=== PATIENT | male | born 1955 | race Two or more races ===

== ENCOUNTER 2024-06-22 20:15 | Inpatient (IN) | payer MEDICARE, OTHER ==
[~2024-06-22] VITALS: Ht 167.6 cm; Wt 57.4 kg
[2024-06-22 21:09] LABS: BASOPHILS # (AUTO) 0.1 K/UL (0.0-0.2); BASOPHILS % (AUTO) 1.5 % (0.0-2.0); EOSINOPHILS # (AUTO) 0.1 K/uL (0.0-0.7); EOSINOPHILS % (AUTO) 2.6 % (0.0-7.0); HEMATOCRIT 34.5 % (36.7-47.1); LYMPHOCYTES # (AUTO) 1.6 K/uL (0.8-4.8); LYMPHOCYTES % (AUTO) 30.3 % (20.5-51.5); MEAN CORPUSCULAR HEMOGLOBIN 24.7 uug (23.8-33.4); MEAN CORPUSCULAR HGB CONC 32 g/dL (32.5-36.3); MEAN CORPUSCULAR VOLUME 77.5 fL (73.0-96.2); MONOCYTES # (AUTO) 0.5 K/uL (0.1-1.30); MONOCYTES % (AUTO) 9.7 % (0.0-11.0); NEUTROPHILS # (AUTO) 2.9 K/uL (1.8-8.9); NEUTROPHILS % (AUTO) 55.9 % (38.5-71.5); PLATELET COUNT (AUTO) 282 K/uL (152-348); RED BLOOD CELL COUNT(AUTO) 4.45 MIL/uL (4.06-5.63); RED CELL DISTRIBUTION WIDTH 18.4 % (12.1-16.2); WHITE BLOOD COUNT (AUTO) 5.2 K/uL (3.6-10.2)
[2024-06-22 21:11] LABS: DIFFERENTIAL COMMENT 1
[2024-06-22 21:17] LABS: CARBON DIOXIDE 23 mmol/L (21-32); CHLORIDE 111 mmol/L (98-107); CREATININE 1.9 mg/dL (0.6-1.3); GLUCOSE 92 mg/dL (74-106); SODIUM SERUM 145 mmol/L (136-145); UREA NITROGEN, BLOOD 26 mg/dL (7-18)
[2024-06-22 21:30] LABS: ALANINE AMINOTRANSFERASE 32 U/L (16-63); ALBUMIN 2.8 g/dL (3.4-5.0); ASPARTATE AMINOTRANSFERASE 29 U/L (15-37); BILIRUBIN,DIRECT 0.3 mg/dL (0.0-0.2); BILIRUBIN,TOTAL 0.9 mg/dL (0.2-1.0); NT-PRO BNP 14065 pg/mL (0-125); TOTAL PROTEIN, SERUM 7.5 g/dL (6.4-8.2)
[2024-06-22 21:44] LABS: ALKALINE PHOSPHATASE 142 U/L (50-136)
[2024-06-22] MEDS: ALBUTEROL SULFATE 2.5 MG/3 ML NEBU NEB ONE (21:47)
[2024-06-22 21:50] VITALS: O2SAT 100
[2024-06-22] MEDS ORDERED: CALCIUM GLUCONATE 1 GM/10 ML VIAL IV ONE (21:55)
[2024-06-22] MEDS ORDERED: ASPIRIN 81 MG TAB.CHEW ONE (21:55)
[2024-06-22] MEDS: ASPIRIN 81 MG TAB.CHEW PO ONE (21:57)
[2024-06-22] MEDS: SODIUM POLYSTYRENE SULFONATE 15 G/60 ML LIQUID UDC PO ONE (21:57)
[2024-06-22] MEDS: CALCIUM GLUCONATE IV 1 GM in IV DEXTROSE 5% 50 ML IV ONE (21:57)
[2024-06-22 22:40] VITALS: O2SAT 100; O2SAT 99
[2024-06-22] MEDS ORDERED: MORPHINE SULFATE 4 MG/1 ML DISP.SYRIN ONE (23:00)
[2024-06-23 00:06] LABS: CALCIUM 9.3 mg/dL (8.5-10.1); CREATININE 1.9 mg/dL (0.6-1.3); POTASSIUM 5.7 mmol/L (3.5-5.1)
[2024-06-23] MEDS ORDERED: FUROSEMIDE 20 MG/2 ML VIAL ONE ×2 (01:01→09:31)
[2024-06-23] MEDS: FUROSEMIDE 40 MG/4 ML VIAL IV ONE (01:06)
[2024-06-23] MEDS ORDERED: REMEDY ESSENTIAL ZINC PASTE 113 GM TP PRN (01:15)
[2024-06-23] MEDS ORDERED: ACETAMINOPHEN 325 MG TABLET PO PRN (01:15)
[2024-06-23] MEDS: DOXYCYCLINE HYCLATE 100 MG TABLET PO ONE (04:15)
[2024-06-23] MEDS ORDERED: DOXYCYCLINE HYCLATE 100 MG TABLET ONE (04:22)
[2024-06-23] MEDS ORDERED: MORPHINE SULFATE 4 MG/1 ML DISP.SYRIN ONE (06:13)
[2024-06-23] MEDS: MORPHINE SULFATE 4 MG/1 ML DISP.SYRIN IV ONE (06:20)
[2024-06-23 08:07] LABS: BASOPHILS # (AUTO) 0.1 K/UL (0.0-0.2); BASOPHILS % (AUTO) 1.1 % (0.0-2.0); EOSINOPHILS # (AUTO) 0.1 K/uL (0.0-0.7); EOSINOPHILS % (AUTO) 2.1 % (0.0-7.0); HEMATOCRIT 33.3 % (36.7-47.1); HEMOGLOBIN 10.6 g/dL (12.5-16.3); LYMPHOCYTES # (AUTO) 1.5 K/uL (0.8-4.8); LYMPHOCYTES % (AUTO) 30.9 % (20.5-51.5); MEAN CORPUSCULAR HEMOGLOBIN 24.4 uug (23.8-33.4); MEAN CORPUSCULAR HGB CONC 32 g/dL (32.5-36.3); MEAN CORPUSCULAR VOLUME 77.1 fL (73.0-96.2); MONOCYTES # (AUTO) 0.5 K/uL (0.1-1.30); MONOCYTES % (AUTO) 10.9 % (0.0-11.0); NEUTROPHILS # (AUTO) 2.7 K/uL (1.8-8.9); PLATELET COUNT (AUTO) 254 K/uL (152-348); RED BLOOD CELL COUNT(AUTO) 4.33 MIL/uL (4.06-5.63); RED CELL DISTRIBUTION WIDTH 18.5 % (12.1-16.2); WHITE BLOOD COUNT (AUTO) 4.9 K/uL (3.6-10.2)
[2024-06-23 08:33] LABS: DIFFERENTIAL COMMENT 1
[2024-06-23 08:59] LABS: CALCIUM 9.2 mg/dL (8.5-10.1); CREATININE 2.1 mg/dL (0.6-1.3); PHOSPHOROUS 4.5 mg/dL (2.5-4.9); POTASSIUM 4.7 mmol/L (3.5-5.1)
[2024-06-23] MEDS: FUROSEMIDE 20 MG/2 ML VIAL IV SCH ×2 (09:35→20:49)
[2024-06-23] MEDS ORDERED: DAPA10TA PO (10:10)
[2024-06-23] MEDS ORDERED: SACU1TAB PO (10:10)
[2024-06-23] MEDS ORDERED: CARV6.252 PO (10:10)
[2024-06-23] MEDS ORDERED: FURO-151 PO (10:10)
[2024-06-23] MEDS: CEFEPIME HCL 2 GM in IV DEXTROSE 5% 100 ML IV SCH (12:22)
[2024-06-23] MEDS ORDERED: CEFEPIME HCL 1 G in IV DEXTROSE 5% 50 ML IV SCH (14:00)
[2024-06-23 15:43] VITALS: BP 176/99; TEMP 98; O2SAT 98
[2024-06-23] MEDS ORDERED: ALBUTEROL SULFATE 2.5 MG/3 ML NEBU NEB PRN (16:30)
[2024-06-23] MEDS ORDERED: IPRATROPIUM BROMIDE 0.5 MG/2.5 ML NEBU NEB PRN (16:30)
[2024-06-23] MEDS: CARVEDILOL 6.25 MG TABLET PO SCH (17:03)
[2024-06-23] MEDS: SACUBITRIL PO SCH (17:03)
[2024-06-23] MEDS: VALSARTAN PO SCH (17:03)
[2024-06-23] MEDS: [UNRECOGNIZED DRUG - OTHER] PO SCH (17:03)
[2024-06-23 17:04] LABS: ABG BASE EXCESS 0.9 mmol/L (-2.0-3.0); ABG HCO3 24.1 mmol/L (21.0-28.0); ABG PCO2 33.5 mmHg (35.0-48.0); ABG PH 7.474 (7.350-7.450); ABG PO2 326.1 mmHg (83.0-108.0); ABG SITE RIGHT RADIAL; ABG TOTAL HEMOGLOBIN 11.6 G/dL (13.5-17.5); AaDO2 99.8 mmHg; COHb 0.3 % (0.5-1.5); MetHb 0.5 % (0.0-1.5); O2Hb 98.8 % (94.0-98.0)
[2024-06-23 20:21] VITALS: BP 133/95; TEMP 98.7; O2SAT 100
[2024-06-24 00:06] VITALS: BP 121/76; TEMP 98.1; O2SAT 99
[2024-06-24 04:03] VITALS: BP 126/80; TEMP 98.2; O2SAT 99
[2024-06-24 07:05] LABS: BASOPHILS # (AUTO) 0.1 K/UL (0.0-0.2); BASOPHILS % (AUTO) 1.1 % (0.0-2.0); EOSINOPHILS # (AUTO) 0.5 K/uL (0.0-0.7); EOSINOPHILS % (AUTO) 8.7 % (0.0-7.0); HEMATOCRIT 35.3 % (36.7-47.1); HEMOGLOBIN 11.3 g/dL (12.5-16.3); LYMPHOCYTES # (AUTO) 1.2 K/uL (0.8-4.8); LYMPHOCYTES % (AUTO) 23.7 % (20.5-51.5); MEAN CORPUSCULAR HEMOGLOBIN 24.2 uug (23.8-33.4); MEAN CORPUSCULAR HGB CONC 32 g/dL (32.5-36.3); MEAN CORPUSCULAR VOLUME 75.7 fL (73.0-96.2); MONOCYTES # (AUTO) 0.7 K/uL (0.1-1.30); MONOCYTES % (AUTO) 13.3 % (0.0-11.0); NEUTROPHILS # (AUTO) 2.8 K/uL (1.8-8.9); NEUTROPHILS % (AUTO) 53.2 % (38.5-71.5); PLATELET COUNT (AUTO) 244 K/uL (152-348); RED BLOOD CELL COUNT(AUTO) 4.66 MIL/uL (4.06-5.63); RED CELL DISTRIBUTION WIDTH 18.2 % (12.1-16.2); WHITE BLOOD COUNT (AUTO) 5.2 K/uL (3.6-10.2)
[2024-06-24 07:19] LABS: DIFFERENTIAL COMMENT 1
[2024-06-24 07:25] LABS: CALCIUM 8.2 mg/dL (8.5-10.1); CREATININE 2.1 mg/dL (0.6-1.3); MAGNESIUM 1.5 mg/dL (1.8-2.4); PHOSPHOROUS 4.1 mg/dL (2.5-4.9); POTASSIUM 3.7 mmol/L (3.5-5.1)
[2024-06-24] MEDS: DAPAGLIFLOZIN PROPANEDIOL 5 MG TABLET PO SCH (08:21)
[2024-06-24 08:30] VITALS: BP 116/79; TEMP 97.9; O2SAT 96
[2024-06-24] MEDS ORDERED: DAPAGLIFLOZIN PROPANEDIOL 10 MG TABLET PO SCH (09:00)
[2024-06-24] MEDS ORDERED: MAGNESIUM SULFATE/D5W 100 ML IV SCH (10:00)
[2024-06-24] MEDS: MAGNESIUM SULFATE/D5W 100 ML IV SCH (11:18)
[2024-06-24 12:00] VITALS: BP 99/70; TEMP 98.1; O2SAT 98
[2024-06-24 15:22] VITALS: BP 98/67; TEMP 97.6; O2SAT 96
[2024-06-24 22:04] VITALS: BP 121/77; TEMP 98; O2SAT 100
[2024-06-25 06:19] LABS: *BILIRUBIN,URIN NEGATIVE (NEGATIVE); *BLOOD, URINE NEGATIVE (NEGATIVE); *CLARITY,URINE CLEAR (CLEAR); *COLOR,URINE YELLOW (YELLOW); *KETONES,URINE NEGATIVE (NEGATIVE); *PROTEIN,URINE NEGATIVE (NEGATIVE); *UROBILINOGEN,URINE 0.2 E.U./dl (NORMAL); LEUKOCYTE ESTERASE ,URINE NEGATIVE (NEGATIVE); NITRITE, URINE NEGATIVE (NEGATIVE); UGLUCOSE TRACE (NEGATIVE)
[2024-06-25 07:18] LABS: BACTERIA,URINE NONE SEEN /HPF (NONE SEEN); RBC,URINE 0-3 /HPF (0-3); SQUAMOUS EPITHELIAL CELL,UR FEW /HPF (NONE SEEN); WBC,URINE 0-3 /HPF (0-3)
[2024-06-25 07:20] LABS: *CREATININE,URINE < 13.0 mg/dL (30-125); *SODIUM RNDM,URINE 118 mmol/L (40-220); *URINE TOTAL PROTEIN RANDOM < 6.0 mg/dL (<150/24HR)
[2024-06-25 07:25] LABS: BASOPHILS % (AUTO) 0.8 % (0.0-2.0); EOSINOPHILS # (AUTO) 0.5 K/uL (0.0-0.7); EOSINOPHILS % (AUTO) 8.6 % (0.0-7.0); HEMATOCRIT 37.6 % (36.7-47.1); HEMOGLOBIN 12.5 g/dL (12.5-16.3); LYMPHOCYTES # (AUTO) 1.4 K/uL (0.8-4.8); LYMPHOCYTES % (AUTO) 21.5 % (20.5-51.5); MEAN CORPUSCULAR HEMOGLOBIN 25.1 uug (23.8-33.4); MEAN CORPUSCULAR HGB CONC 33 g/dL (32.5-36.3); MEAN CORPUSCULAR VOLUME 75.4 fL (73.0-96.2); MONOCYTES # (AUTO) 0.8 K/uL (0.1-1.30); MONOCYTES % (AUTO) 12.4 % (0.0-11.0); NEUTROPHILS # (AUTO) 3.6 K/uL (1.8-8.9); NEUTROPHILS % (AUTO) 56.7 % (38.5-71.5); PLATELET COUNT (AUTO) 275 K/uL (152-348); RED BLOOD CELL COUNT(AUTO) 4.99 MIL/uL (4.06-5.63); RED CELL DISTRIBUTION WIDTH 17.9 % (12.1-16.2); WHITE BLOOD COUNT (AUTO) 6.3 K/uL (3.6-10.2)
[2024-06-25 07:35] VITALS: BP 113/80; TEMP 98; O2SAT 97
[2024-06-25 07:43] LABS: DIFFERENTIAL COMMENT 1
[2024-06-25 07:49] LABS: ALBUMIN 2.3 g/dL (3.4-5.0); BILIRUBIN,TOTAL 0.6 mg/dL (0.2-1.0); CALCIUM 8.3 mg/dL (8.5-10.1); CREATININE 2.2 mg/dL (0.6-1.3); MAGNESIUM 1.9 mg/dL (1.8-2.4); PHOSPHOROUS 4.8 mg/dL (2.5-4.9); POTASSIUM 3.6 mmol/L (3.5-5.1); TOTAL PROTEIN, SERUM 7.1 g/dL (6.4-8.2)
[2024-06-25 11:43] VITALS: BP 94/68; TEMP 98; O2SAT 96
[2024-06-25 15:45] VITALS: BP 103/73; TEMP 97.6; O2SAT 98
[2024-06-25 19:38] VITALS: BP 114/70; TEMP 99.5; O2SAT 96
[2024-06-26] VITALS (10 sets, daily range): BP systolic 66–115; BP diastolic 45–82; TEMP 97.6–99; O2SAT 92–100
[2024-06-26 07:03] LABS: BASOPHILS % (AUTO) 0.5 % (0.0-2.0); EOSINOPHILS # (AUTO) 0.5 K/uL (0.0-0.7); EOSINOPHILS % (AUTO) 6.1 % (0.0-7.0); HEMATOCRIT 40.2 % (36.7-47.1); HEMOGLOBIN 13.1 g/dL (12.5-16.3); LYMPHOCYTES # (AUTO) 1.6 K/uL (0.8-4.8); LYMPHOCYTES % (AUTO) 21.4 % (20.5-51.5); MEAN CORPUSCULAR HEMOGLOBIN 24.4 uug (23.8-33.4); MEAN CORPUSCULAR HGB CONC 33 g/dL (32.5-36.3); MONOCYTES % (AUTO) 13.6 % (0.0-11.0); NEUTROPHILS # (AUTO) 4.4 K/uL (1.8-8.9); NEUTROPHILS % (AUTO) 58.4 % (38.5-71.5); PLATELET COUNT (AUTO) 303 K/uL (152-348); RED BLOOD CELL COUNT(AUTO) 5.36 MIL/uL (4.06-5.63); RED CELL DISTRIBUTION WIDTH 18.3 % (12.1-16.2); WHITE BLOOD COUNT (AUTO) 7.6 K/uL (3.6-10.2)
[2024-06-26 07:21] LABS: ALBUMIN 2.5 g/dL (3.4-5.0); BILIRUBIN,DIRECT 0.3 mg/dL (0.0-0.2); BILIRUBIN,TOTAL 0.6 mg/dL (0.2-1.0); CALCIUM 8.4 mg/dL (8.5-10.1); CREATININE 2.2 mg/dL (0.6-1.3); MAGNESIUM 2.1 mg/dL (1.8-2.4); PHOSPHOROUS 4.2 mg/dL (2.5-4.9); POTASSIUM 3.7 mmol/L (3.5-5.1); TOTAL PROTEIN, SERUM 7.5 g/dL (6.4-8.2)
[2024-06-26 07:23] LABS: DIFFERENTIAL COMMENT 1
[2024-06-26] MEDS: IV NORMAL SALINE 500 ML BAG IV ONE (11:24)
[2024-06-26] MEDS: ASPIRIN 81 MG TAB.CHEW PO ONE (11:26)
[2024-06-26] MEDS: TRAMADOL HCL 50 MG TABLET PO PRN (20:50)
[2024-06-27 00:43] VITALS: TEMP 98
[2024-06-27 04:00] VITALS: BP 118/79; TEMP 98; O2SAT 95
[2024-06-27 05:11] LABS: PTH, INTACT 107 pg/mL (15-65)
[2024-06-27 06:41] LABS: BASOPHILS % (AUTO) 0.6 % (0.0-2.0); EOSINOPHILS # (AUTO) 0.4 K/uL (0.0-0.7); HEMATOCRIT 37.7 % (36.7-47.1); HEMOGLOBIN 12.7 g/dL (12.5-16.3); LYMPHOCYTES # (AUTO) 1.4 K/uL (0.8-4.8); LYMPHOCYTES % (AUTO) 18.7 % (20.5-51.5); MEAN CORPUSCULAR HEMOGLOBIN 25.4 uug (23.8-33.4); MEAN CORPUSCULAR HGB CONC 34 g/dL (32.5-36.3); MEAN CORPUSCULAR VOLUME 75.3 fL (73.0-96.2); MONOCYTES # (AUTO) 1.1 K/uL (0.1-1.30); MONOCYTES % (AUTO) 15.1 % (0.0-11.0); NEUTROPHILS # (AUTO) 4.6 K/uL (1.8-8.9); NEUTROPHILS % (AUTO) 60.6 % (38.5-71.5); PLATELET COUNT (AUTO) 278 K/uL (152-348); RED CELL DISTRIBUTION WIDTH 17.9 % (12.1-16.2); WHITE BLOOD COUNT (AUTO) 7.6 K/uL (3.6-10.2)
[2024-06-27 06:43] LABS: DIFFERENTIAL COMMENT 1
[2024-06-27 07:00] LABS: CALCIUM 8.3 mg/dL (8.5-10.1); CREATININE 2.1 mg/dL (0.6-1.3)
[2024-06-27 08:06] LABS: PTH, INTACT 129 pg/mL (15-65)
[2024-06-27 11:06] LABS: A/G RATIO 0.6 (0.7-1.7); ALBUMIN 2.5 g/dL (2.9-4.4); ALPHA-1-GLOBULIN 0.3 g/dL (0.0-0.4); ALPHA-2-GLOBULIN 0.8 g/dL (0.4-1.0); BETA GLOBULIN 1.1 g/dL (0.7-1.3); GAMMA GLOBULIN 2.2 g/dL (0.4-1.8); GLOBULIN, TOTAL 4.3 g/dL (2.2-3.9); M-SPIKE 1.5 g/dL (Not Observed); PROTEIN, TOTAL 6.8 g/dL (6.0-8.5)
[2024-06-27 11:06] LABS: A/G RATIO 0.7 (0.7-1.7); ALBUMIN 2.6 g/dL (2.9-4.4); ALPHA-1-GLOBULIN 0.3 g/dL (0.0-0.4); ALPHA-2-GLOBULIN 0.8 g/dL (0.4-1.0); BETA GLOBULIN 1.4 g/dL (0.7-1.3); GAMMA GLOBULIN 1.4 g/dL (0.4-1.8); GLOBULIN, TOTAL 3.9 g/dL (2.2-3.9); M-SPIKE 0.8 g/dL (Not Observed); PROTEIN, TOTAL 6.5 g/dL (6.0-8.5)
[2024-06-27 12:51] LABS: ANISOCYTOSIS 1+; BASOPHILS % (MANUAL) 0 % (0-2); EOSINOPHILS % (MANUAL) 5 % (0-8); LYMPHOCYTES % (MANUAL) 16 % (20-40); MONOCYTES % (MANUAL) 14 % (2-10); NEUTROPHILS % (MANUAL) 65 % (42-75); PLATELET ESTIMATE ADEQUATE
[2024-06-27] MEDS: COLCHICINE 0.6 MG TABLET PO ONE (12:52)
[2024-06-27] MEDS: TRAMADOL HCL 50 MG TABLET PO PRN (13:00)
[2024-06-27 17:13] VITALS: BP 96/59; TEMP 97.8; O2SAT 97
[2024-06-27 19:00] VITALS: BP 103/71; TEMP 97.5; O2SAT 95
[2024-06-27] MEDS: CEFDINIR 300 MG CAPSULE PO SCH (21:22)
[2024-06-27 23:41] VITALS: BP 103/71; TEMP 97.5
[2024-06-28] VITALS: BP 125/73; TEMP 98.7; O2SAT 88
[2024-06-28 01:54] VITALS: BP 125/73; TEMP 98.7; O2SAT 97
[2024-06-28 04:00] VITALS: BP 128/66; TEMP 98.4; O2SAT 95
[2024-06-28 07:27] LABS: BASOPHILS % (AUTO) 0.7 % (0.0-2.0); EOSINOPHILS # (AUTO) 0.5 K/uL (0.0-0.7); HEMATOCRIT 36.9 % (36.7-47.1); HEMOGLOBIN 12.2 g/dL (12.5-16.3); LYMPHOCYTES # (AUTO) 1.6 K/uL (0.8-4.8); LYMPHOCYTES % (AUTO) 26.1 % (20.5-51.5); MEAN CORPUSCULAR HEMOGLOBIN 24.8 uug (23.8-33.4); MEAN CORPUSCULAR HGB CONC 33 g/dL (32.5-36.3); MEAN CORPUSCULAR VOLUME 74.9 fL (73.0-96.2); MONOCYTES # (AUTO) 1.2 K/uL (0.1-1.30); MONOCYTES % (AUTO) 19.2 % (0.0-11.0); NEUTROPHILS # (AUTO) 2.9 K/uL (1.8-8.9); PLATELET COUNT (AUTO) 267 K/uL (152-348); RED BLOOD CELL COUNT(AUTO) 4.92 MIL/uL (4.06-5.63); RED CELL DISTRIBUTION WIDTH 18.7 % (12.1-16.2); WHITE BLOOD COUNT (AUTO) 6.3 K/uL (3.6-10.2)
[2024-06-28 07:38] VITALS: BP 111/65; TEMP 98.5; O2SAT 96
[2024-06-28 07:45] LABS: CALCIUM 8.4 mg/dL (8.5-10.1); CREATININE 1.7 mg/dL (0.6-1.3); MAGNESIUM 2.1 mg/dL (1.8-2.4); PHOSPHOROUS 3.6 mg/dL (2.5-4.9); POTASSIUM 4.2 mmol/L (3.5-5.1)
[2024-06-28 07:48] LABS: DIFFERENTIAL COMMENT 1
[2024-06-28] MEDS: COLCHICINE 0.6 MG TABLET PO SCH (08:56)
[2024-06-28] MEDS: FUROSEMIDE 40 MG TABLET PO SCH (08:56)
[2024-06-28 09:59] LABS: EOSINOPHILS % (MANUAL) 8 % (0-8); LYMPHOCYTES % (MANUAL) 26 % (20-40); MONOCYTES % (MANUAL) 19 % (2-10); NEUTROPHILS % (MANUAL) 47 % (42-75); PLATELET ESTIMATE ADEQUATE
[2024-06-28 11:38] VITALS: BP 91/57; TEMP 98.4; O2SAT 97
[2024-06-28 15:50] VITALS: BP 97/63; TEMP 98.3; O2SAT 99
[2024-06-29 04:53] VITALS: BP 100/61; TEMP 98; O2SAT 99
[2024-06-29 07:14] LABS: BASOPHILS # (AUTO) 0.1 K/UL (0.0-0.2); BASOPHILS % (AUTO) 1.3 % (0.0-2.0); EOSINOPHILS # (AUTO) 0.5 K/uL (0.0-0.7); EOSINOPHILS % (AUTO) 8.9 % (0.0-7.0); HEMATOCRIT 34.8 % (36.7-47.1); HEMOGLOBIN 11.7 g/dL (12.5-16.3); LYMPHOCYTES # (AUTO) 1.7 K/uL (0.8-4.8); LYMPHOCYTES % (AUTO) 33.5 % (20.5-51.5); MEAN CORPUSCULAR HEMOGLOBIN 25.2 uug (23.8-33.4); MEAN CORPUSCULAR HGB CONC 34 g/dL (32.5-36.3); MEAN CORPUSCULAR VOLUME 75.1 fL (73.0-96.2); MONOCYTES # (AUTO) 0.8 K/uL (0.1-1.30); MONOCYTES % (AUTO) 15.2 % (0.0-11.0); NEUTROPHILS # (AUTO) 2.1 K/uL (1.8-8.9); NEUTROPHILS % (AUTO) 41.1 % (38.5-71.5); PLATELET COUNT (AUTO) 290 K/uL (152-348); RED BLOOD CELL COUNT(AUTO) 4.63 MIL/uL (4.06-5.63); RED CELL DISTRIBUTION WIDTH 18.3 % (12.1-16.2); WHITE BLOOD COUNT (AUTO) 5.2 K/uL (3.6-10.2)
[2024-06-29 07:36] LABS: CALCIUM 8.3 mg/dL (8.5-10.1); CREATININE 1.9 mg/dL (0.6-1.3); PHOSPHOROUS 4.4 mg/dL (2.5-4.9); POTASSIUM 4.1 mmol/L (3.5-5.1)
[2024-06-29 07:57] LABS: DIFFERENTIAL COMMENT 1
[2024-06-29 10:18] LABS: EOSINOPHILS % (MANUAL) 9 % (0-8); LYMPHOCYTES % (MANUAL) 34 % (20-40); MONOCYTES % (MANUAL) 15 % (2-10); NEUTROPHILS % (MANUAL) 41 % (42-75)
[2024-06-29 10:19] LABS: ANISOCYTOSIS 2+; BASOPHILS % (MANUAL) 1 % (0-2); HYPOCHROMASIA 1+; PLATELET ESTIMATE ADEQUATE
[2024-06-29 11:39] VITALS: BP 99/62; TEMP 98; O2SAT 100
[2024-06-29] MEDS ORDERED: CARV6.252 PO (14:13)
[2024-06-29] MEDS ORDERED: FURO40TA5 PO (14:13)
[2024-06-29] MEDS ORDERED: SACU1TAB PO (14:13)
[2024-06-29] MEDS ORDERED: DAPA10TA PO (14:13)
== END 2024-06-29 16:30 | disposition home or self-care (01) | DRG 291 ==
LOC: ER 20:15 → EDSEX 20:15 → TELE3 06-23 09:22 → MEDSURG3 06-25 09:30 → TELE3 06-26 11:15 → MEDSURG3 06-28 08:00
PROVIDERS: ADMIT Nurse Practitioner Family; ATTEND Nurse Practitioner Acute Care
DX: I13.0 Hypertensive heart and chronic kidney disease with heart failure and stage 1 through stage 4 chronic kidney disease, or unspecified chronic kidney disease (principal); I50.23 Acute on chronic systolic (congestive) heart failure; J96.01 Acute respiratory failure with hypoxia; N17.0 Acute kidney failure with tubular necrosis; J15.69 Pneumonia due to other Gram-negative bacteria; Z59.02 Unsheltered homelessness; E44.0 Moderate protein-calorie malnutrition; E87.1 Hypo-osmolality and hyponatremia; E87.5 Hyperkalemia; F17.210 Nicotine dependence, cigarettes, uncomplicated; Z79.02 Long term (current) use of antithrombotics/antiplatelets; E88.09 Other disorders of plasma-protein metabolism, not elsewhere classified; E83.42 Hypomagnesemia; N18.32 Chronic kidney disease, stage 3b; M10.9 Gout, unspecified; I25.5 Ischemic cardiomyopathy; I25.10 Atherosclerotic heart disease of native coronary artery without angina pectoris; I48.91 Unspecified atrial fibrillation
CPT/HCPCS: 36415; 36600; 70030-TC; 71045; 71250; 76770; 82803; 83735; 83970; 84100; 84155; 84165; 84300; 84484; 85025; 93307; A4663; G0378; J0612; J0692; J1940; J2270; J3475; J7040